=== PATIENT | female | born 1990 | race Caucasian/White ===

== ENCOUNTER 2018-04-14 09:11 | Observation (INO) | payer OTHER ==
--- NOTE | 2018-04-14 10:04 | ED Physician Documentation ---
PD HPI NVD - Stated complaint Stated Complaint: SEIZURES/VOMITING - Chief complaint Chief Complaint: Abd Pain - History obtained from History obtained from: Patient - History of Present Illness Timing - onset: How many days ago (2) Timing - duration: Days (2) Timing - details: Abrupt onset, Still present Associated symptoms: Abdominal pain, Dizzy (lightheaded), Loss of appetite. No: Hematemesis, Melena, Near syncope / syncope, Weight loss Improved by: Other (ice chips). No: Vomiting Worsened by: Eating Similar symptoms before: Diagnosis (She and the friend with her states she has had several episodes similar to this. She had been diagnosed with gastritis in the past and she said she was hospitalized for a few days last fall. She states she has nausea often and relates this to her anxiety. She does not typically have vomiting. She denies any purposeful vomiting. She has had not had any chronic diarrhea.) Recently seen: Not recently seen (She states she was last seen in February for nausea and vomiting add a different facility. She is recently moved here and had had prescriptions for a month or so had then run out of her clonazepam and alprazolam. She is almost out of her lamotrigine and. She has not obtained a local provider as yet.) Review of Systems Constitutional: reports: Myalgias. denies: Fever, Chills Nose: denies: Rhinorrhea / runny nose, Congestion Throat: denies: Sore throat Respiratory: denies: Cough GI: reports: Abdominal Pain (mid to upper abdomen), Nausea, Vomiting. denies: Constipation, Diarrhea, Hematemesis, Bloody / black stool : denies: Dysuria, Frequency Neurologic: reports: Generalized weakness. denies: Near syncope, Seizure (had some shakiness, but not seizure per se.) PD PAST MEDICAL HISTORY - Past Medical History Neuro: Seizure disorder (Uses lamotrigine and states she is almost out of medication. Her last dose on the current refill is today and she does not have another refill available.) GI: Other (episodes of nausea and vomiting every few months) Psych: Depression, Anxiety - Present Medications Home Medications: Ambulatory Orders Medication Instructions Recorded Confirmed ALPRAZolam [Alprazolam] 1 mg PO TID PRN 04/14/18 04/14/18 Amitriptyline [Elavil] 25 mg PO QPM 04/14/18 04/14/18 Venlafaxine HCl 37.5 mg PO 0800,1400 04/14/18 04/14/18 Venlafaxine [Effexor] 75 mg PO QPM 04/14/18 04/14/18 clonazePAM [KlonoPIN] 0.5 mg PO BID PRN 04/14/18 04/14/18 lamoTRIgine [LaMICtal] 100 mg PO BID 04/14/18 04/14/18 - Allergies Allergies/Adverse Reactions: Allergies Allergy/AdvReac Type Severity Reaction Status Date / Time No Known Drug Allergies Allergy Verified 04/14/18 09:30 - Living Situation Living Situation: reports: With spouse/s.o. Living Arrangement: reports: At home - Social History Does the pt smoke?: No Does the pt have substance abuse?: Yes Substance Use and Type: Marijuana PD ED PE NORMAL - Vitals Vital signs reviewed: Yes - General General: Alert and oriented X 3, Well developed/nourished, Other (appears pale, sweaty, in pain, and nauseated. ) - HEENT HEENT: Pharynx benign. No: Moist mucous membranes - Neck Neck: Supple, no meningeal sign, No adenopathy - Cardiac Cardiac: RRR, No murmur - Respiratory Respiratory: Clear bilaterally - Abdomen Abdomen: Soft, Non distended, No organomegaly, Other (bowel sounds increased. She is tender mid abdomen and epigastric area. No percussion tenderness. ) - Female Female : Deferred - Rectal Rectal: Deferred - Back Back: No CVA TTP - Derm Derm: No: Normal color (pale) - Neuro Neuro: Alert and oriented X 3, No motor deficit, Normal speech Results - Vitals Vitals: Vital Signs - 24 hr 04/14/18 04/14/18 04/14/18 09:27 09:51 11:01 Temperature 35 C L Heart Rate 101 H 90 96 Respiratory 24 16 21 Rate Blood Pressure 121/83 H 130/90 H 103/55 L O2 Saturation 100 98 92 04/14/18 12:21 Temperature Heart Rate 96 Respiratory 18 Rate Blood Pressure 130/85 H O2 Saturation 97 Oxygen O2 Source Room air - Labs Labs: Laboratory Tests 04/14/18 04/14/18 04/14/18 09:40 09:40 09:40 WBC RBC Hgb Hct MCV MCH MCHC RDW Plt Count MPV Neut # (Auto) Lymph # (Auto) [place] # (Auto) Eos # (Auto) Baso # (Auto) Absolute Nucleated RBC Nucleated RBC % Sodium 137 Potassium 3.0 L Chloride 101 Carbon Dioxide 17 L Anion Gap 19.0 H BUN 7 Creatinine 0.8 Estimated GFR (MDRD) 87 L Glucose 165 H POC Whole Bld Glucose Calcium 10.1 Magnesium 2.0 2.2 Total Bilirubin 1.3 H AST 33 ALT 15 Alkaline Phosphatase 118 Total Protein 8.6 H Albumin 5.2 Globulin 3.4 Albumin/Globulin Ratio 1.5 Lipase 30 TSH 04/14/18 04/14/18 04/14/18 09:40 09:44 10:12 WBC 15.3 H RBC 5.22 Hgb 14.8 Hct 43.9 MCV 84.1 MCH 28.4 MCHC 33.7 RDW 14.5 Plt Count 515 H MPV 7.8 L Neut # (Auto) 10.9 H Lymph # (Auto) 3.3 [place] # (Auto) 0.9 Eos # (Auto) 0.2 Baso # (Auto) 0.1 Absolute Nucleated RBC 0.00 Nucleated RBC % 0.0 Sodium Potassium Chloride Carbon Dioxide Anion Gap BUN Creatinine Estimated GFR (MDRD) Glucose POC Whole Bld Glucose 158 H Calcium Magnesium Total Bilirubin AST ALT Alkaline Phosphatase Total Protein Albumin Globulin Albumin/Globulin Ratio Lipase TSH 2.51 PD MEDICAL DECISION MAKING - ED course Complexity details: re-evaluated patient (She is improved to not actively vomiting at this point. She is not diaphoretic anymore and is starting to have some improved color. However she still is nauseated and was just tolerating ice chips. As such I do not feel she will be improved enough for discharge and will ask the hospitalist to look at her.), considered differential (The patient ran out of her benzodiazepines mid February. I think it has been long enough this is unlikely to be withdrawal component. However she has had increased a nxiety because of the lack of medication and that certainly can contribute as a trigger to her nausea vomiting and possibly gastritis. Given the episodes similar to this in the past and with stated regular cannabis use, could also consider cannabis hyperemesis as opposed to gastritis or anxiety. Certainly can have a components of all of those.), d/w patient Departure - Departure Disposition: ED Place in Observation Clinical Impression: Nausea and vomiting Qualifiers: Vomiting type: unspecified Vomiting Intractability: intractable Qualified Code(s): R11.2 - Nausea with vomiting, unspecified Abdominal pain Qualifiers: Abdominal location: upper abdomen, unspecified Qualified Code(s): R10.10 - Upper abdominal pain, unspecified Condition: Stable Record reviewed to determine appropriate education?: Yes Discharge Date/Time: 04/14/18 13:44
[2018-04-14 10:15] LABS: ALBUMIN 5.2 g/dL (3.2-5.5); ALBUMIN/GLOBULIN RATIO 1.5 (1.0-2.2); BILIRUBIN,TOTAL 1.3 mg/dL (0.2-1.0); CALCIUM 10.1 mg/dL (8.5-10.3); CREATININE 0.8 mg/dL (0.4-1.0); TOTAL PROTEIN 8.6 g/dL (6.7-8.2)
[2018-04-14] MEDS ORDERED: LORazepam 2 MG/ML VIAL IVP STA ×2 (10:25→11:20)
[2018-04-14] MEDS ORDERED: HALOPERIDOL 5 MG/ML VIAL IVP ONE (10:25)
[2018-04-14] MEDS ORDERED: SODIUM CHLORIDE 0.9% 1,000 ML IV ONE ×2 (10:26)
[2018-04-14] MEDS ORDERED: FAMOTIDINE 20 MG/2 ML VIAL IVP STA (10:26)
[2018-04-14 10:41] LABS: BASOPHILS # (AUTO) 0.1 10^3/uL (0.0-0.1); BASOPHILS % (AUTO) 0.3 %; EOSINOPHILS # (AUTO) 0.2 10^3/uL (0.0-0.7); EOSINOPHILS % (AUTO) 1.5 %; HGB - HEMOGLOBIN 14.8 g/dL (12.0-16.0); LYMPHOCYTES # (AUTO) 3.3 10^3/uL (1.5-3.5); LYMPHOCYTES % (AUTO) 21.4 %; MEAN CORPUSCULAR HEMOGLOBIN 28.4 pg (27.0-31.0); MEAN CORPUSCULAR HGB CONC 33.7 g/dL (32.0-36.0); MEAN CORPUSCULAR VOLUME 84.1 fL (81.0-99.0); MEAN PLATELET VOLUME 7.8 fL (7.9-10.8); MONOCYTES # (AUTO) 0.9 10^3/uL (0.0-1.0); MONOCYTES % (AUTO) 5.9 %; NEUTROPHILS # (AUTO) 10.9 10^3/uL (1.5-6.6); NEUTROPHILS % (AUTO) 70.9 %; PLT - PLATELET COUNT 515 10^3/uL (130-450); RED BLOOD COUNT 5.22 10^6/uL (4.20-5.40); RED CELL DISTRIBUTION WIDTH 14.5 % (12.0-15.0); WHITE BLOOD COUNT 15.3 x10^3/uL (4.8-10.8)
[2018-04-14] MEDS ORDERED: KETOROLAC 15 MG/ML VIAL IVP STA (10:49)
[2018-04-14] MEDS ORDERED: HYDROmorphone 1 MG/ML CARPUJECT IVP STA (11:20)
[2018-04-14] MEDS ORDERED: ONDANSETRON 4 MG/2 ML VIAL IVP STA (12:01)
[2018-04-14] MEDS ORDERED: MORPHINE 2 MG/ML CARPUJECT IVP PRN (12:37)
--- NOTE | 2018-04-14 12:56 | HISTORY & PHYSICAL EXAMINATION ---
Chief Complaint - Chief Complaint Chief Complaint: severe nausea, emesis with associated abd pain Abdominal Pain HPI - Admitted From Admitted from: ED - History Obtained From Records Reviewed: RN notes reviewed History obtained from: Patient Exam limitations: Clinical condition - History of Present Illness Pain/Problem Location Description: Lower abdominal pain Severity at the worst: Moderate Pain Quality: Sharp, Aching, Cramping Context-Pain started w/: Movement, Palpation, Position Timing: Gradual onset Improved with: Rest Associated symptoms: Nausea, Vomiting HPI Comment/Other: This is a 27 y/o female with hx seizure d/o on lamictal who suffers from severe anxiety and was previously on clonazepam and xanax prn for which she has not had last use since 02/18 p/w recurrent intractable nausea with emesis with associated abdominal pain post-emesis w/o sick contacts fevers, dysuria, pelvic pain, prior STD's or evidence of . States she has been smoking marijuana since age 19 y/o and her father and siblings have the same issue with marijuana associated nausea with emesis. Patient states debilitating anxiety for which she is unable to be functional and directly links this to her being taking off of clonazepam/xanax since moving here locally fo which her prior PCP would rx her meds. Patient denies seizure like activity while she has been off of benzos. On Exam patient was tearful, anxious w/ no arrhythmias or seizures on exam or tele, VSS, and labs did show mild leukocytosis with WBC of 15.3, K 3.o with c02 17, renal function preserved, LFT's normal, lipase 30, UDS, TSH and mag ordered. 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 PMH/PSH - Past Medical History Neuro: positive: Seizure disorder Psych: positive: Anxiety, Panic attacks MRSA Hx?: No Social & Family Hx - Social History Does the pt smoke?: Yes Does the pt drink ETOH?: No Does the pt have substance abuse?: Yes Substance Use and Type: Marijuana - POLST Patient has POLST: No Meds/Allgy - Home Medications Home Medications: Ambulatory Orders Medication Instructions Recorded Confirmed ALPRAZolam [Alprazolam] 1 mg PO TID PRN 04/14/18 04/14/18 Amitriptyline [Elavil] 25 mg PO QPM 04/14/18 04/14/18 Venlafaxine HCl 37.5 mg PO 0800,1400 04/14/18 04/14/18 Venlafaxine [Effexor] 75 mg PO QPM 04/14/18 04/14/18 clonazePAM [KlonoPIN] 0.5 mg PO BID PRN 04/14/18 04/14/18 lamoTRIgine [LaMICtal] 100 mg PO BID 04/14/18 04/14/18 - Allergies Allergies/Adverse Reactions: Allergies Allergy/AdvReac Type Severity Reaction Status Date / Time No Known Drug Allergies Allergy Verified 04/14/18 09:30 Review of Systems - Constitutional Constitutional: reports: Poor appetite - Ears, Nose & Throat Ears, Nose & Throat: denies: Tinnitus, Vertigo - Cardiovascular Cariovascular: denies: Irregular heart rate, Palpitations, Chest pain, Edema, Syncope - Respiratory Respiratory: denies: Cough, Sputum production, Wheezing, Hemoptysis, Orthopnea - Gastrointestinal Gastrointestinal: reports: Abdominal pain, Nausea, Vomiting. denies: Diarrhea, Bloody stools, Coffee grounds emesis, Reflux/heartburn - Genitourinary Genitourinary: denies: Dysuria, Frequency, Urgency - Musculoskeletal Musculoskeletal: denies: Muscle pain, Muscle weakness - Integumentary Integumentary: denies: Rash, Pruritis, Lesions, Dryness - Neurological Neurological: reports: General weakness. denies: Dizziness, Memory problems, Seizures - Psychiatric Psychiatric: denies: Depression, Anxiety, Hallucinations - Endocrine Endocrine: denies: Polyuria, Polydypsia, Intolerance to cold - Hematologic/Lymphatic Hematologic/Lymphatic: denies: Anemia, Bruising, Lymphadenopathy - All Other Systems All Other Systems: reports: Reviewed and negative Prior Level of Functionality: Independent with her ADL's Exam - Vital Signs Reviewed Vital Signs: Yes Vital Signs: Vital Signs x48h Temp Pulse Resp BP Pulse Ox 04/14/18 12:21 96 18 130/85 H 97 04/14/18 11:01 96 21 103/55 L 92 04/14/18 09:51 90 16 130/90 H 98 04/14/18 09:27 35 C L 101 H 24 121/83 H 100 - Physical Exam General Appearance: positive: No acute distress, Alert, Anxious, Other (tearful) Eyes Bilateral: positive: Normal inspection, PERRL, EOMI, Conjunctivae nml ENT: positive: ENT inspection nml, Pharynx nml, Dry mucous membranes Neck: positive: Nml inspection, Thyroid nml, No JVD, Trachea midline. negative: Thyromegaly, Carotid bruit Respiratory: positive: Chest non-tender, No respiratory distress, Breath sounds nml Cardiovascular: positive: Regular rate & rhythm, No murmur, No gallop. negative: Irregularly irregular, JVD present, Gallop/S4 Peripheral Pulses: positive: 2+ Abdomen: positive: Non-tender, No organomegaly, Nml bowel sounds, No distention, Tenderness (to epigastric lower quads) Back: positive: Nml inspection. negative: CVA tenderness (R), CVA tenderness (L) Skin: positive: Color nml, Warm Extremities: positive: Non-tender, Full ROM, Nml appearance, No pedal edema. negative: Pedal edema Neurologic/Psychiatric: positive: Oriented x3, CN's nml (2-12) Results - Lab Results Lab results reviewed: Yes Fish Bones: 04/14/18 10:12 04/14/18 09:40 Other Lab Results: Lab Results x24hrs 04/14/18 04/14/18 04/14/18 Range/Units 10:12 09:44 09:40 WBC 15.3 H (4.8-10.8) x10^3/uL RBC 5.22 (4.20-5.40) 10^6/uL Hgb 14.8 (12.0-16.0) g/dL Hct 43.9 (37.0-47.0) % MCV 84.1 (81.0-99.0) fL MCH 28.4 (27.0-31.0) pg MCHC 33.7 (32.0-36.0) g/dL RDW 14.5 (12.0-15.0) % Plt Count 515 H (130-450) 10^3/uL MPV 7.8 L (7.9-10.8) fL Neut # (Auto) 10.9 H (1.5-6.6) 10^3/uL Lymph # (Auto) 3.3 (1.5-3.5) 10^3/uL [place] # (Auto) 0.9 (0.0-1.0) 10^3/uL Eos # (Auto) 0.2 (0.0-0.7) 10^3/uL Baso # (Auto) 0.1 (0.0-0.1) 10^3/uL Absolute Nucleated RBC 0.00 x10^3/uL Nucleated RBC % 0.0 /100WBC Sodium (135-145) mmol/L Potassium (3.5-5.0) mmol/L Chloride (101-111) mmol/L Carbon Dioxide (21-32) mmol/L Anion Gap (6-13) BUN (6-20) mg/dL Creatinine (0.4-1.0) mg/dL Estimated GFR (MDRD) (>89) Glucose (70-100) mg/dL POC Whole Bld Glucose 158 H (70 - 100) mg/dL Calcium (8.5-10.3) mg/dL Magnesium 2.0 (1.7-2.8) mg/dL Total Bilirubin (0.2-1.0) mg/dL AST (10-42) IU/L ALT (10-60) IU/L Alkaline Phosphatase (42-121) IU/L Total Protein (6.7-8.2) g/dL Albumin (3.2-5.5) g/dL Globulin (2.1-4.2) g/dL Albumin/Globulin Ratio (1.0-2.2) Lipase (22-51) U/L 04/14/18 Range/Units 09:40 WBC (4.8-10.8) x10^3/uL RBC (4.20-5.40) 10^6/uL Hgb (12.0-16.0) g/dL Hct (37.0-47.0) % MCV (81.0-99.0) fL MCH (27.0-31.0) pg MCHC (32.0-36.0) g/dL RDW (12.0-15.0) % Plt Count (130-450) 10^3/uL MPV (7.9-10.8) fL Neut # (Auto) (1.5-6.6) 10^3/uL Lymph # (Auto) (1.5-3.5) 10^3/uL [place] # (Auto) (0.0-1.0) 10^3/uL Eos # (Auto) (0.0-0.7) 10^3/uL Baso # (Auto) (0.0-0.1) 10^3/uL Absolute Nucleated RBC x10^3/uL Nucleated RBC % /100WBC Sodium 137 (135-145) mmol/L Potassium 3.0 L (3.5-5.0) mmol/L Chloride 101 (101-111) mmol/L Carbon Dioxide 17 L (21-32) mmol/L Anion Gap 19.0 H (6-13) BUN 7 (6-20) mg/dL Creatinine 0.8 (0.4-1.0) mg/dL Estimated GFR (MDRD) 87 L (>89) Glucose 165 H (70-100) mg/dL POC Whole Bld Glucose (70 - 100) mg/dL Calcium 10.1 (8.5-10.3) mg/dL Magnesium (1.7-2.8) mg/dL Total Bilirubin 1.3 H (0.2-1.0) mg/dL AST 33 (10-42) IU/L ALT 15 (10-60) IU/L Alkaline Phosphatase 118 (42-121) IU/L Total Protein 8.6 H (6.7-8.2) g/dL Albumin 5.2 (3.2-5.5) g/dL Globulin 3.4 (2.1-4.2) g/dL Albumin/Globulin Ratio 1.5 (1.0-2.2) Lipase 30 (22-51) U/L Sepsis Event Note (H) - Evaluation Current Stage of Sepsis: Ruled out Impression/Plan - Problem List Problem List: 1. Acute Cannabis Hyperemesis Syndrome 2. Abdominal pain sec #1 3. Severe Anxiety disorder 4. Hypokalemia 5. Dehydration with mild metabolic acidosis 6. Leukocyosis sec to inflammatory component of intractable N/V with abd pain Plan: Admit to med/surg, IVF's to correct lytes, pain control restart home meds with her lamictal as well as her effexor, would re-start her benzodiazepines as she has likely component of pain associated with her anxiety uncontrolled and has resorted to smoking marijuana more consistently as a result. Marinol to be given for nausea control, consider REGLAN 5-10 mg PO TID ac, protonix IV BID, full liquid, advanced as tolerated. DVT/GI ppx Code status: FULL
[2018-04-14] MEDS: D5NS W/20 MEQ KCL 1,000 ML IV SCH ×3 (13:39→22:46)
[2018-04-14] MEDS ORDERED: VENLAFAXINE 37.5 MG TABLET PO SCH ×2 (14:00→21:00)
[2018-04-14] MEDS: SODIUM CHLORIDE FLUSH 0.9% 10 ML SYRINGE IVP SCH (14:31)
[2018-04-14 14:47] LABS: MUDS CUTOFF CONCENTRATIONS CUTOFF CONC BELOW:
[2018-04-14 14:59] LABS: BILIRUBIN,URINE NEGATIVE (NEGATIVE); GLUCOSE, URINE (UA) NEGATIVE (NEGATIVE); KETONES,URINE (UA) 40 mg/dL (NEGATIVE); LEUKOCYTE ESTERASE, URINE NEGATIVE (NEGATIVE); NITRITE,URINE NEGATIVE (NEGATIVE); OCCULT BLOOD,URINE SMALL (NEGATIVE); PROTEIN,URINE NEGATIVE (NEGATIVE); UROBILINOGEN,URINE 0.2 (NORMAL) E.U./dL (NORMAL)
[2018-04-14 15:15] LABS: CLARITY,URINE HAZY (CLEAR); HCG UR QUAL NEGATIVE
[2018-04-14 15:18] LABS: AMPHETAMINE SCREEN,URINE NEGATIVE (NEGATIVE); BACTERIA,URINE Moderate /HPF (None Seen); BENZODIAZEPINES SCREEN, URINE POSITIVE (NEGATIVE); COCAINE SCREEN URINE NEGATIVE (NEGATIVE); METHADONE SCREEN, URINE NEGATIVE (NEGATIVE); METHAMPHETAMINES SCREEN, URINE NEGATIVE (NEGATIVE); OPIATE SCREEN, URINE NEGATIVE (NEGATIVE); OXYCODONE SCREEN, URINE NEGATIVE (NEGATIVE); PROPOXYPHENE SCREEN, URINE NEGATIVE (NEGATIVE); RBC,URINE None Seen /HPF (0-5); SQUAMOUS EPITHELIAL CELL,UR RARE Squamous (<= Few); TRICYCLIC ANTIDEPRESSANT,URINE NEGATIVE (NEGATIVE)
[2018-04-14] MEDS: SODIUM CHLORIDE FLUSH 0.9% 10 ML SYRINGE IVP PRN (15:52)
[2018-04-14] MEDS: PANTOPRAZOLE 40 MG VIAL IVP SCH (15:52)
[2018-04-14] MEDS ORDERED: VENLAFAXINE 37.5 MG TABLET PO ONE (16:00)
[2018-04-14] MEDS: DRONABINOL 2.5 MG CAPSULE PO SCH (16:35)
[2018-04-14] MEDS: ONDANSETRON 4 MG/2 ML VIAL IVP PRN (16:39)
[2018-04-14] MEDS: clonazePAM 0.5 MG TABLET PO SCH ×2 (17:47→21:30)
[2018-04-14] MEDS: PROCHLORPERAZINE 10 MG/2 ML VIAL IVP PRN (17:47)
[2018-04-14] MEDS: VENLAFAXINE 37.5 MG TABLET PO SCH (21:30)
[2018-04-14] MEDS: lamoTRIgine 100 MG TABLET PO SCH (21:31)
[2018-04-14] MEDS: AMITRIPTYLINE 25 MG TABLET PO SCH (21:31)
[2018-04-14] MEDS: ALPRAZolam 0.25 MG TABLET PO SCH (21:31)
[2018-04-15] MEDS: PROCHLORPERAZINE 10 MG/2 ML VIAL IVP PRN ×3 (00:16→17:59)
[2018-04-15] MEDS: SODIUM CHLORIDE FLUSH 0.9% 10 ML SYRINGE IVP SCH ×4 (00:19→16:42)
[2018-04-15] MEDS: DRONABINOL 2.5 MG CAPSULE PO SCH ×2 (06:01→16:42)
[2018-04-15] MEDS: ALPRAZolam 0.25 MG TABLET PO SCH ×3 (06:01→21:08)
[2018-04-15] MEDS: SODIUM CHLORIDE FLUSH 0.9% 10 ML SYRINGE IVP PRN ×2 (06:02→18:03)
[2018-04-15] MEDS: PANTOPRAZOLE 40 MG VIAL IVP SCH ×2 (06:02→16:42)
[2018-04-15] MEDS: D5NS W/20 MEQ KCL 1,000 ML IV SCH ×3 (06:04→13:57)
[2018-04-15] MEDS: clonazePAM 0.5 MG TABLET PO SCH ×3 (06:08→21:08)
[2018-04-15 08:40] LABS: BASOPHILS % (AUTO) 0.3 %; EOSINOPHILS % (AUTO) 0.3 %; HGB - HEMOGLOBIN 10.7 g/dL (12.0-16.0); LYMPHOCYTES # (AUTO) 2.5 10^3/uL (1.5-3.5); LYMPHOCYTES % (AUTO) 24.3 %; MEAN CORPUSCULAR HEMOGLOBIN 28.8 pg (27.0-31.0); MEAN CORPUSCULAR HGB CONC 33.8 g/dL (32.0-36.0); MEAN CORPUSCULAR VOLUME 85.1 fL (81.0-99.0); MEAN PLATELET VOLUME 7.3 fL (7.9-10.8); MONOCYTES % (AUTO) 9.8 %; NEUTROPHILS # (AUTO) 6.8 10^3/uL (1.5-6.6); NEUTROPHILS % (AUTO) 65.3 %; PLT - PLATELET COUNT 286 10^3/uL (130-450); RED BLOOD COUNT 3.71 10^6/uL (4.20-5.40); RED CELL DISTRIBUTION WIDTH 14.1 % (12.0-15.0); WHITE BLOOD COUNT 10.3 x10^3/uL (4.8-10.8)
[2018-04-15] MEDS: lamoTRIgine 100 MG TABLET PO SCH ×2 (08:45→20:11)
[2018-04-15] MEDS: VENLAFAXINE 37.5 MG TABLET PO SCH ×2 (08:45→20:11)
[2018-04-15 08:49] LABS: CALCIUM 8.3 mg/dL (8.5-10.3); CREATININE 0.6 mg/dL (0.4-1.0)
[2018-04-15] MEDS ORDERED: POLYETHYLENE GLYCOL 3350 17 GM PACKET PO SCH (09:00)
[2018-04-15] MEDS ORDERED: LORazepam 2 MG/ML VIAL IVP PRN (10:17)
--- NOTE | 2018-04-15 15:56 | Discharge Plan ---
Discharge Plan Disposition: Home, Self Care Condition: Stable Prescriptions: ALPRAZolam [Alprazolam] 1 mg PO TID PRN #30 tablet PRN Reason: Anxiety Amitriptyline [Elavil] 25 mg PO QPM #30 tablet clonazePAM [KlonoPIN] 0.5 mg PO BID PRN #60 tablet PRN Reason: Anxiety lamoTRIgine [LaMICtal] 100 mg PO BID #60 tablet Venlafaxine [Effexor] 75 mg PO QPM #60 tablet Venlafaxine HCl 37.5 mg PO 0800,1400 #60 tablet Diet: Soft Activity Restrictions: Activity as Tolerated Shower Restrictions: No Driving Restrictions: No Weight Bearing: Full Weight Instruction Topics: Clonazepam tablets, Venlafaxine tablets, Amitriptyline tablets, Alprazolam tablets, Hyperemesis, Abuse Marijuana Additional Instructions or Follow Up instructions: You were in Observation status due to dehydration from excessive nausea and vomiting caused by marijuana use. Stop using marijuana. Advance your diet as tolerated. Stay hydrated. New prescriptions were ordered for you until you see your PCP. If you have new or worsening symptoms, come to the ER. No Smoking: If you smoke, Please STOP! Call for help. Follow-up with: Provider,Other [Primary Care Provider] -
--- NOTE | 2018-04-15 17:11 | PROVIDER PROGRESS NOTE ---
Assessment/Plan - Problem List (1) Cannabis hyperemesis syndrome concurrent with and due to cannabis abuse Assessment/Plan: She is slowly improving with no vomiting since breakfast and no nausea since last medicated with Compazine this afternoon. Continue iv fluids, but will decrease the rate. Advance diet as tolerated. The Compazine and pain meds made her sleepy. Anti-emetics as needed. She was put on Marinol, which will be stopped before [facility]. (2) Abdominal pain Qualifiers: Abdominal location: upper abdomen, unspecified Qualified Code(s): R10.10 - Upper abdominal pain, unspecified Assessment/Plan: Resolved. (3) Anxiety disorder Assessment/Plan: Patient is back on all her anxiolytics as before she ran out of them, and feels much better. - Current Meds Current Meds: Current Medications Generic Name Dose Route Start Last Admin Trade Name Freq PRN Reason Stop Dose Admin Alprazolam 1 mg 04/14/18 22:00 04/15/18 13:55 Xanax PO 1 mg TID BUD Administration Amitriptyline HCl 25 mg 04/14/18 21:00 04/14/18 21:31 Elavil PO 25 mg QPM BUD Administration Clonazepam 0.5 mg 04/14/18 18:00 04/15/18 14:02 Klonopin PO 0.5 mg TID BUD Administration Dronabinol 2.5 mg 04/14/18 16:00 04/15/18 16:42 Marinol PO 2.5 mg BIDAC BUD Administration Potassium Chloride/Dextrose/Sod Cl 1,000 mls @ 80 mls/hr 04/15/18 10:17 0 04/15/18 13:57 IV 80 mls/hr .[id number] BUD Administration Lamotrigine 100 mg 04/14/18 21:00 04/15/18 08:45 Lamictal PO 100 mg BID BUD Administration Lorazepam 0.5 mg 04/15/18 10:17 04/15/18 11:20 Ativan Inj (Vial) IVP 0.5 mg Q2H PRN Administration Anxiety Ondansetron HCl 4 mg 04/14/18 12:37 04/14/18 16:39 Zofran Inj IVP 4 mg Q6HR PRN Administration Nausea / Vomiting Pantoprazole Sodium 40 mg 04/14/18 16:00 04/15/18 16:42 Protonix IVP 40 mg BIDAC BUD Administration Prochlorperazine Edisylate 10 mg 04/14/18 12:37 04/15/18 09:14 Compazine Inj IVP 10 mg Q6HR PRN Administration Nausea / Vomiting Sodium Chloride 10 ml 04/14/18 12:37 04/15/18 06:02 Normal Saline Flush 0.9% IVP 10 ml PRN PRN Administration NEEDED PER PROVIDER ORDERS Sodium Chloride 10 ml 04/14/18 17:00 04/15/18 16:42 Normal Saline Flush 0.9% IVP 10 ml 0100,0900,1700 BUD Administration Venlafaxine HCl 75 mg 04/14/18 21:00 04/15/18 08:45 Effexor PO 75 mg BID BUD Administration - Lab Result Fish Bone Diagrams: 04/15/18 08:37 04/15/18 08:37 - Additional Planning My Orders: My Active Orders 04/15/18 10:17 D5ns W/20 Meq KCl 1,000 ml IV 80 mls/hr LORazepam INJ [Ativan Inj (Vial)] 0.5 mg IVP Q2H PRN Subjective - Subjective Patient Reports: Feeling Better, Other (vomited breakfast, then only had broth andd applesauce for lunch and got nauseated, needed Compazine.) Objective Vital Signs: Vital Signs - 24 hr 04/14/18 04/15/18 04/15/18 20:00 00:47 05:00 Temperature 37.0 C 36.5 C 37.0 C Heart Rate [ 98 95 87 Brachial] Respiratory 16 17 16 Rate Blood Pressure 147/95 H 110/58 L 112/51 L [Left Brachial artery] Blood Pressure [Right Brachial artery] O2 Saturation 100 95 95 04/15/18 04/15/18 04/15/18 08:11 11:52 16:50 Temperature 37.0 C 37.0 C 36.9 C Heart Rate [ 89 89 87 Brachial] Respiratory 18 18 16 Rate Blood Pressure 106/63 106/61 [Left Brachial artery] Blood Pressure 112/65 [Right Brachial artery] O2 Saturation 95 99 100 Oxygen O2 Source Room air I&O (Last 24 Hrs): Intake and Output Totals x24h 04/13/18 04/14/18 04/15/18 23:59 23:59 23:59 Intake Total 2700 3720 Output Total 551 400 Balance 2149 3320 General: Alert, Oriented x3 HEENT: Mucous membr. moist/pink, Other (appears fatigued) Neck: Supple Neuro: Non Focal Cardiovascular: Regular rate, No murmurs Respiratory: No respiratory distress, Breath sounds nml Abdomen: Normal bowel sounds, Soft, No tenderness, No hepatospenomegaly Extremities: No edema - Results Results: Laboratory Results WBC 10.3 x10^3/uL (4.8-10.8) 04/15/18 08:37 RBC 3.71 10^6/uL (4.20-5.40) L 04/15/18 08:37 Hgb 10.7 g/dL (12.0-16.0) L 04/15/18 08:37 Hct 31.5 % (37.0-47.0) L 04/15/18 08:37 MCV 85.1 fL (81.0-99.0) 04/15/18 08:37 MCH 28.8 pg (27.0-31.0) 04/15/18 08:37 MCHC 33.8 g/dL (32.0-36.0) 04/15/18 08:37 RDW 14.1 % (12.0-15.0) 04/15/18 08:37 Plt Count 286 10^3/uL (130-450) 04/15/18 08:37 MPV 7.3 fL (7.9-10.8) L 04/15/18 08:37 Neut # (Auto) 6.8 10^3/uL (1.5-6.6) H 04/15/18 08:37 Lymph # (Auto) 2.5 10^3/uL (1.5-3.5) 04/15/18 08:37 [place] # (Auto) 1.0 10^3/uL (0.0-1.0) 04/15/18 08:37 Eos # (Auto) 0.0 10^3/uL (0.0-0.7) 04/15/18 08:37 Baso # (Auto) 0.0 10^3/uL (0.0-0.1) 04/15/18 08:37 Absolute Nucleated RBC 0.01 x10^3/uL 04/15/18 08:37 Nucleated RBC % 0.0 /100WBC 04/15/18 08:37 Sodium 141 mmol/L (135-145) 04/15/18 08:37 Potassium 3.5 mmol/L (3.5-5.0) 04/15/18 08:37 Chloride 111 mmol/L (101-111) 04/15/18 08:37 Carbon Dioxide 22 mmol/L (21-32) 04/15/18 08:37 Anion Gap 8.0 (6-13) 04/15/18 08:37 BUN 5 mg/dL (6-20) L 04/15/18 08:37 Creatinine 0.6 mg/dL (0.4-1.0) 04/15/18 08:37 Estimated GFR (MDRD) 122 (>89) 04/15/18 08:37 Glucose 96 mg/dL (70-100) 04/15/18 08:37 POC Whole Bld Glucose 158 mg/dL (70 - 100) H 04/14/18 09:44 Calcium 8.3 mg/dL (8.5-10.3) L 04/15/18 08:37 Magnesium 2.2 mg/dL (1.7-2.8) 04/14/18 09:40 Total Bilirubin 1.3 mg/dL (0.2-1.0) H 04/14/18 09:40 AST 33 IU/L (10-42) 04/14/18 09:40 ALT 15 IU/L (10-60) 04/14/18 09:40 Alkaline Phosphatase 118 IU/L (42-121) 04/14/18 09:40 Total Protein 8.6 g/dL (6.7-8.2) H 04/14/18 09:40 Albumin 5.2 g/dL (3.2-5.5) 04/14/18 09:40 Globulin 3.4 g/dL (2.1-4.2) 04/14/18 09:40 Albumin/Globulin Ratio 1.5 (1.0-2.2) 04/14/18 09:40 Lipase 30 U/L (22-51) 04/14/18 09:40 TSH 2.51 uIU/mL (0.34-5.60) 04/14/18 09:40 Urine Color DARK YELLOW 04/14/18 14:15 Urine Clarity HAZY (CLEAR) 04/14/18 14:15 Urine pH 7.0 PH (5.0-7.5) 04/14/18 14:15 Ur Specific [place] 1.025 (1.002-1.030) 04/14/18 14:15 Urine Protein NEGATIVE mg/dL (NEGATIVE) 04/14/18 14:15 Urine Glucose (UA) NEGATIVE mg/dL (NEGATIVE) 04/14/18 14:15 Urine Ketones 40 mg/dL (NEGATIVE) H 04/14/18 14:15 Urine Occult Blood SMALL (NEGATIVE) H 04/14/18 14:15 Urine Nitrite NEGATIVE (NEGATIVE) 04/14/18 14:15 Urine Bilirubin NEGATIVE (NEGATIVE) 04/14/18 14:15 Urine Urobilinogen 0.2 (NORMAL) E.U./dL (NORMAL) 04/14/18 14:15 Ur Leukocyte Esterase NEGATIVE (NEGATIVE) 04/14/18 14:15 Urine RBC None Seen /HPF (0-5) 04/14/18 14:15 Urine WBC 0-3 /HPF (0-5) 04/14/18 14:15 Ur Squamous Epith Cells RARE Squamous (<= Few) 04/14/18 14:15 Urine Bacteria Moderate /HPF (None Seen) H 04/14/18 14:15 Ur Microscopic Review INDICATED 04/14/18 14:15 Urine Culture Comments INDICATED 04/14/18 14:15 Urine HCG, Qual NEGATIVE 04/14/18 14:15 Urine Opiates Screen NEGATIVE (NEGATIVE) 04/14/18 14:15 Ur Oxycodone Screen NEGATIVE (NEGATIVE) 04/14/18 14:15 Urine Methadone Screen NEGATIVE (NEGATIVE) 04/14/18 14:15 Ur Propoxyphene Screen NEGATIVE (NEGATIVE) 04/14/18 14:15 Ur Barbiturates Screen NEGATIVE (NEGATIVE) 04/14/18 14:15 Ur Tricyclics Screen NEGATIVE (NEGATIVE) 04/14/18 14:15 Ur Phencyclidine Scrn NEGATIVE (NEGATIVE) 04/14/18 14:15 Ur Amphetamine Screen NEGATIVE (NEGATIVE) 04/14/18 14:15 U Methamphetamines Scrn NEGATIVE (NEGATIVE) 04/14/18 14:15 U Benzodiazepines Scrn POSITIVE (NEGATIVE) H 04/14/18 14:15 Urine Cocaine Screen NEGATIVE (NEGATIVE) 04/14/18 14:15 U Cannabinoids Screen POSITIVE (NEGATIVE) H 04/14/18 14:15 Sepsis Event Note (H) - Evaluation Current Stage of Sepsis: Ruled out
[2018-04-15] MEDS: AMITRIPTYLINE 25 MG TABLET PO SCH (20:11)
[2018-04-16] MEDS: D5NS W/20 MEQ KCL 1,000 ML IV SCH (02:35)
[2018-04-16] MEDS: SODIUM CHLORIDE FLUSH 0.9% 10 ML SYRINGE IVP SCH ×2 (02:44→08:45)
[2018-04-16] MEDS: PROCHLORPERAZINE 10 MG/2 ML VIAL IVP PRN (02:47)
[2018-04-16] MEDS: ONDANSETRON 4 MG/2 ML VIAL IVP PRN (03:45)
[2018-04-16] MEDS: clonazePAM 0.5 MG TABLET PO SCH ×2 (06:36→13:20)
[2018-04-16] MEDS: DRONABINOL 2.5 MG CAPSULE PO SCH (06:36)
[2018-04-16] MEDS: ALPRAZolam 0.25 MG TABLET PO SCH ×2 (06:36→13:17)
[2018-04-16] MEDS: SODIUM CHLORIDE FLUSH 0.9% 10 ML SYRINGE IVP PRN ×2 (06:37→10:08)
[2018-04-16] MEDS: PANTOPRAZOLE 40 MG VIAL IVP SCH (06:37)
[2018-04-16] MEDS ORDERED: LORazepam 0.5 MG TABLET PO PRN (07:57)
[2018-04-16] MEDS ORDERED: ACETAMINOPHEN 325 MG TABLET PO PRN (07:57)
[2018-04-16] MEDS: lamoTRIgine 100 MG TABLET PO SCH (10:05)
[2018-04-16] MEDS: VENLAFAXINE 37.5 MG TABLET PO SCH (10:07)
[2018-04-16] MEDS ORDERED: ONDANSETRON ODT 4 MG TABLET TL PRN (10:58)
[2018-04-16 13:34] VITALS: BP 122/76
--- NOTE | 2018-04-19 11:27 | DISCHARGE SUMMARY ---
Physician: Misa Garcia MD DATE OF ADMISSION: 04/14/2018 DATE OF DISCHARGE: 04/16/2018 HISTORY OF PRESENT ILLNESS: This is a 27-year-old white female who moved to the [facility] about a month and a half ago. She has a history of seizure disorder, on Lamictal and has severe anxiety and was on clonazepam and Xanax. She started to see a PCP and was not ordered to continue with her clonazepam and Xanax. The patient also has a history of marijuana associated hyperemesis syndrome and reports the same diagnoses for her father and siblings. Patient started using more marijuana because of being taken off the clonazepam and Xanax, to deal with severe anxiety. With that, she developed nausea and vomiting. The vomiting was so severe she had abdominal pain. She presented with these complaints. She was placed in Observation status for rehydration and management of her nausea, vomiting, abdominal pain and anxiety. HOSPITAL COURSE AND DISCHARGE DIAGNOSES 1. Cannabis hyperemesis syndrome. The patient was on various antiemetics including Marinol for nausea, especially for prior marijuana user. Her diet was adjusted to clear liquids for bowel rest. The nausea continued for 48 hours and was exacerbated by attempting to eat creamy foods. She had a consultation from the tow truck dispatcher for assistance with choosing a proper diet. She was advanced to a soft diet eventually and was discharged. She was advised not to use marijuana to excess. 2. Abdominal pain. This was felt to be from her retching and vomiting and she did receive several doses of narcotics for pain control. Labs did not show any evidence of elevated lipase or bilirubin or LFT abnormalities. 3. Severe anxiety. The patient was treated with anxiolytics and discharged, restarted on her previous complete set of medications that were effective for anxiety control. 4. Seizure disorder. The patient was on her Lamictal while here. LABORATORY AND IMAGING: Reviewed and summarized above. ALLERGIES: NONE. MEDICATIONS AT THE TIME OF DISCHARGE 1. Alprazolam 1 mg p.o. t.i.d. p.r.n. anxiety. 2. Elavil 25 mg p.o. q.p.m. 3. Clonazepam 0.5 mg p.o. b.i.d. 4. Lamictal 100 mg p.o. b.i.d. 5. Effexor 75 mg q.p.m. and 37.5 mg p.o. b.i.d. CONDITION AT DISCHARGE: Stable. PHYSICAL EXAMINATION VITAL SIGNS: Blood pressure 122/76, pulse 78, afebrile, room air saturation 98%. HEENT: Showed moist oral mucosa. NECK: Without JVD. CHEST: Clear. HEART: Heart sounds normal. ABDOMEN: Soft with positive bowel sounds. No tenderness, guarding or rebound. No organomegaly. EXTREMITIES: Without edema. NEUROLOGIC: Grossly intact. FOLLOWUP: She was advised to see a PCP and stated there was an appointment pending with a new PCP in several weeks. CODE STATUS: FULL CODE. Time required to complete the entire discharge, chart review, prescription orders, discussion with the patient, and significant other: 35 minutes. TD: 04/19/2018 10:52 [email or web address]
== END 2018-04-16 14:20 | disposition home or self-care (01) ==
LOC: ED 09:11 → OBS 12:37
PROVIDERS: ADMIT Family Medicine; ATTEND Internal Medicine
DX: F12.188 Cannabis abuse with other cannabis-induced disorder (principal); R11.2 Nausea with vomiting, unspecified; R10.10 Upper abdominal pain, unspecified; R10.30 Lower abdominal pain, unspecified; F41.0 Panic disorder [episodic paroxysmal anxiety]; E87.6 Hypokalemia; E87.2 Acidosis; E86.0 Dehydration; G40.909 Epilepsy, unspecified, not intractable, without status epilepticus; F32.9 Major depressive disorder, single episode, unspecified; Z79.899 Other long term (current) drug therapy; Z87.19 Personal history of other diseases of the digestive system
CPT/HCPCS: 36415; 80048; 80053; 80306; 81001; 81025; 83690; 83735; 84443; 85025; 87077; 87086; 87181; 96361; 96365; 96366; 96375; 96376; 99284; A9270; G0378; J2060; Q0162; Q0167; 81003; 96374

== ENCOUNTER 2018-07-09 04:32 | Emergency (ER) | payer OTHER ==
--- NOTE | 2018-07-09 05:11 | ED Physician Documentation ---
PD HPI NVD - Stated complaint Stated Complaint: ANXIETY/BLURRED VISION/VOMITING - Chief complaint Chief Complaint: MHE - History obtained from History obtained from: Patient - History of Present Illness Timing - onset: How many days ago (2) Timing - duration: Days Timing - details: Waxing and waning Pain level now: 5 Associated symptoms: Abdominal pain, Dizzy Improved by: Other (nothing) Worsened by: Other (no apparent exacerbating factors) Similar symptoms before: Diagnosis (canabis hyperemesis) Recently seen: Emergency Dept (evaluated in ED April for same, admitted) - Additonal information Additional information: Patient complains of 1 to 2 days of nausea and vomiting, abdominal pain. She says she also has paralyzing anxiety. Patient says that she has a prescription for Zofran waiting for me at the pharmacy, but she says she has been too sick to pick it up. Patient moved to [facility] a few months ago, and has been admitted to this hospital in April for same symptoms. Patient indicates to me that she has had the symptoms before, and has been told it was related to cannabis hyperemesis syndrome. Patient says her last cannabis use was approximately two weeks ago. On my entrance into the room, she is holding emesis bag that is nearly half-full with what appears to be mostly water. Review of Systems Constitutional: reports: Reviewed and negative Cardiac: reports: Reviewed and negative Respiratory: reports: Reviewed and negative GI: reports: Abdominal Pain, Nausea, Vomiting. denies: Diarrhea : denies: Now EGA Neurologic: reports: Reviewed and negative PD PAST MEDICAL HISTORY - Past Medical History Past Medical History: Yes Cardiovascular: None Respiratory: None Neuro: Seizure disorder Endocrine/Autoimmune: None GI: Other : None, Kidney stones HEENT: None Psych: Depression, Anxiety Musculoskeletal: None Derm: Other - Past Surgical History Past Surgical History: Yes - Present Medications Home Medications: Ambulatory Orders Medication Instructions Recorded Confirmed ALPRAZolam [Alprazolam] 1 mg PO TID PRN #30 tablet 04/15/18 Amitriptyline [Elavil] 25 mg PO QPM #30 tablet 04/15/18 Venlafaxine HCl 37.5 mg PO 0800,1400 #60 tablet 04/15/18 Venlafaxine [Effexor] 75 mg PO QPM #60 tablet 04/15/18 clonazePAM [KlonoPIN] 0.5 mg PO BID PRN #60 tablet 04/15/18 lamoTRIgine [LaMICtal] 100 mg PO BID #60 tablet 04/15/18 ALPRAZolam [Alprazolam] 0.5 mg PO TID PRN #10 tablet 07/09/18 Promethazine [Phenergan] 25 mg PO Q6H PRN #10 tab 07/09/18 - Allergies Allergies/Adverse Reactions: Allergies Allergy/AdvReac Type Severity Reaction Status Date / Time No Known Drug Allergies Allergy Verified 07/10/18 11:51 - Social History Does the pt smoke?: No Smoking Status: Never smoker Does the pt drink ETOH?: No Does the pt have substance abuse?: Yes - POLST Patient has POLST: No PD ED PE NORMAL - Vitals Vital signs reviewed: Yes - General General: Alert and oriented X 3, Well developed/nourished, Other (diaphoretic, shaking, anxious, tearful, dry-heaving very loudly) - HEENT HEENT: PERRL, EOMI, Other (pasty mucous membranes) - Neck Neck: Supple, no meningeal sign - Cardiac Cardiac: No murmur - Respiratory Respiratory: No respiratory distress, Clear bilaterally - Abdomen Abdomen: Soft, Non distended, Other (periumbilical tenderness with partial distractable component) - Back Back: No CVA TTP - Derm Derm: Normal color, Warm and dry, No rash - Extremities Extremities: No edema - Neuro Neuro: Alert and oriented X 3 PD ED PE EXPANDED - Cardiac Cardiac: Tachy, Regular Rhythm Results - Vitals Vitals: Oxygen O2 Source Room air - Labs Labs: Laboratory Tests 07/09/18 07/09/18 05:00 05:00 WBC 24.1 H RBC 5.41 H Hgb 15.2 Hct 47.9 H MCV 88.5 MCH 28.1 MCHC 31.8 L RDW 14.6 Plt Count 494 H MPV 7.5 L Neut # (Auto) 21.7 H Lymph # (Auto) 0.8 L [place] # (Auto) 1.5 H Eos # (Auto) 0.0 Baso # (Auto) 0.1 Absolute Nucleated RBC 0.01 Nucleated RBC % 0.0 Manual Slide Review Indicated Platelet Estimate INCREASED (>450,000) RBC Morph Micro Appear NORMAL APPEARANCE Sodium 135 Potassium 3.0 L Chloride 98 L Carbon Dioxide 16 L Anion Gap 21.0 H BUN 9 Creatinine 0.8 Estimated GFR (MDRD) 87 L Glucose 225 H Calcium 10.1 Total Bilirubin 2.2 H AST 41 ALT 21 Alkaline Phosphatase 120 Total Protein 8.8 H Albumin 5.5 Globulin 3.3 Albumin/Globulin Ratio 1.7 Lipase 22 PD MEDICAL DECISION MAKING - ED course Complexity details: reviewed old records, reviewed results, re-evaluated patient, considered differential, d/w patient ED course: on reevaluation, after IV fluids, Phenergan, Ativan, patient appears drowsy, and is in no apparent distress. She is able to converse articulately, albeit with mild slurred speech. However, she says she feels no improvement in her symptoms. She requests admission to the hospital, says please dont send me home to spend the next two days in my bathroom.I explained that she has not had any significant emesis since receiving the medications, her CAT scan is reassuring, and, at this time, I do not feel hospital admission is indicated nor necessary. I reviewed with her some notes from her previous ED visit; they indicate she was admitted to another facility for a few days last fall: she tells me this is incorrect. They also indicate she was evaluated at another facility in February, which she also says is incorrect. I asked this so that previous records might be obtained. Patient says she hasnt been evaluated in an ED or hospital for these symptoms since approximately March of 2017 Departure - Departure Disposition: 01 Home, Self Care Clinical Impression: Cannabis hyperemesis syndrome concurrent with and due to cannabis abuse, Hyperglycemia, Hypokalemia Condition: Good Instructions: ED Potassium Deficiency, ED Nausea Vomiting, ED Hyperglycemia New Susp Diabetes Follow-Up: Dara Stark DNP [Primary Care Provider] - Prescriptions: ALPRAZolam [Alprazolam] 0.5 mg PO TID PRN #10 tablet PRN Reason: Anxiety Promethazine [Phenergan] 25 mg PO Q6H PRN #10 tab PRN Reason: Nausea / Vomiting Discharge Date/Time: 07/09/18 09:02
[2018-07-09] MEDS ORDERED: PROMETHAZINE INJ 25 MG in SODIUM CHLORIDE 0.9% 50 ML IV STA (05:27)
[2018-07-09] MEDS ORDERED: SODIUM CHLORIDE 0.9% 1,000 ML IV STA (05:27)
[2018-07-09] MEDS ORDERED: LORazepam 2 MG/ML VIAL IVP STA (05:28)
[2018-07-09 05:36] LABS: BASOPHILS # (AUTO) 0.1 10^3/uL (0.0-0.1); BASOPHILS % (AUTO) 0.3 %; HGB - HEMOGLOBIN 15.2 g/dL (12.0-16.0); LYMPHOCYTES # (AUTO) 0.8 10^3/uL (1.5-3.5); LYMPHOCYTES % (AUTO) 3.3 %; MEAN CORPUSCULAR HEMOGLOBIN 28.1 pg (27.0-31.0); MEAN CORPUSCULAR HGB CONC 31.8 g/dL (32.0-36.0); MEAN CORPUSCULAR VOLUME 88.5 fL (81.0-99.0); MEAN PLATELET VOLUME 7.5 fL (7.9-10.8); MONOCYTES # (AUTO) 1.5 10^3/uL (0.0-1.0); MONOCYTES % (AUTO) 6.2 %; NEUTROPHILS # (AUTO) 21.7 10^3/uL (1.5-6.6); NEUTROPHILS % (AUTO) 90.2 %; PLT - PLATELET COUNT 494 10^3/uL (130-450); RED BLOOD COUNT 5.41 10^6/uL (4.20-5.40); RED CELL DISTRIBUTION WIDTH 14.6 % (12.0-15.0); WHITE BLOOD COUNT 24.1 x10^3/uL (4.8-10.8)
[2018-07-09 05:42] LABS: ALBUMIN 5.5 g/dL (3.2-5.5); ALBUMIN/GLOBULIN RATIO 1.7 (1.0-2.2); BILIRUBIN,TOTAL 2.2 mg/dL (0.2-1.0); CALCIUM 10.1 mg/dL (8.5-10.3); CREATININE 0.8 mg/dL (0.4-1.0); TOTAL PROTEIN 8.8 g/dL (6.7-8.2)
[2018-07-09 06:34] LABS: PLATELET ESTIMATE, MANUAL INCREASED (>450,000) (NORMAL); RBC MORPHOLOGY (MULTIPLE) NORMAL APPEARANCE (NORMAL)
[2018-07-09] MEDS ORDERED: IOVERSOL 320 100 ML VIAL IVP ONE ×2 (06:40→06:55)
--- NOTE | 2018-07-09 07:17 | CT Report ---
Reason: abd. pain, leukocytosis Procedure Date: 07/09/2018 Accession Number: [id number] / [id number] Procedure: CT - Abdomen/Pelvis W CPT Code: FULL RESULT: EXAM: CT ABDOMEN AND PELVIS EXAM DATE: 07/09/2018 07:00 AM. CLINICAL HISTORY: Abd. pain, leukocytosis. COMPARISONS: None. TECHNIQUE: Routine helical CT imaging was performed through the abdomen and pelvis. IV contrast: [id number] 100ML. Enteric contrast: No. Reconstructions: Coronal and sagittal. In accordance with CT protocol optimization, one or more of the following dose reduction techniques were utilized for this exam: automated exposure control, adjustment of mA and/or KV based on patient size, or use of iterative reconstructive technique. FINDINGS: Lung Bases: There is a nodule at the left lung base. It measures approximately 5 mm (image 11 of series 3). Solid organs: The liver is without evidence of an enhancing mass. Focal fatty infiltration is seen adjacent to the falciform ligament. The spleen is without evidence of an enhancing mass. The pancreas and adrenal glands are normal in appearance. The kidneys are without evidence of a mass or hydronephrosis. Peritoneal Cavity/Bowel: The appendix is normal in appearance. There are no dilated loops of bowel to suggest the presence of an obstruction. Pelvic Organs: No mass or cyst is seen within the pelvis. Vasculature: There is no abdominal aortic aneurysm. Bones: No significant abnormality. Other: None. IMPRESSION: Increased lung markings in the left lower lobe of the lung that most likely represent atelectasis or scarring. Based on the patient's age, no further workup is needed. RADIA
[2018-07-09] MEDS ORDERED: ONDANSETRON 4 MG/2 ML VIAL IVP STA (07:36)
[2018-07-09] MEDS ORDERED: POTASSIUM CHLORIDE 20 MEQ TABLET PO STA (08:05)
[2018-07-09 09:02] VITALS: BP 130/74
== END 2018-07-09 09:02 | disposition home or self-care (01) ==
LOC: ED 04:32
DX: T40.7X1A Poisoning by cannabis (derivatives), accidental (unintentional), initial encounter (principal); R11.2 Nausea with vomiting, unspecified; F12.188 Cannabis abuse with other cannabis-induced disorder; R73.9 Hyperglycemia, unspecified; E87.6 Hypokalemia; F41.9 Anxiety disorder, unspecified; G40.909 Epilepsy, unspecified, not intractable, without status epilepticus
CPT/HCPCS: 36415; 74177; 80053; 83690; 85025; 96361; 96365; 96375; 99283; A9270; J2060; J7040; Q9967

== ENCOUNTER 2018-07-10 11:37 | Emergency (ER) | payer OTHER ==
[2018-07-10 13:57] LABS: BASOPHILS # (AUTO) 0.1 10^3/uL (0.0-0.1); BASOPHILS % (AUTO) 0.4 %; HGB - HEMOGLOBIN 15.6 g/dL (12.0-16.0); LYMPHOCYTES # (AUTO) 1.9 10^3/uL (1.5-3.5); LYMPHOCYTES % (AUTO) 13.2 %; MEAN CORPUSCULAR HEMOGLOBIN 28.4 pg (27.0-31.0); MEAN PLATELET VOLUME 7.3 fL (7.9-10.8); MONOCYTES # (AUTO) 0.8 10^3/uL (0.0-1.0); MONOCYTES % (AUTO) 5.8 %; NEUTROPHILS # (AUTO) 11.4 10^3/uL (1.5-6.6); NEUTROPHILS % (AUTO) 80.6 %; PLT - PLATELET COUNT 468 10^3/uL (130-450); RED BLOOD COUNT 5.47 10^6/uL (4.20-5.40); RED CELL DISTRIBUTION WIDTH 14.7 % (12.0-15.0); WHITE BLOOD COUNT 14.1 x10^3/uL (4.8-10.8)
[2018-07-10 14:07] LABS: ALBUMIN 5.4 g/dL (3.2-5.5); ALBUMIN/GLOBULIN RATIO 1.7 (1.0-2.2); BILIRUBIN,TOTAL 1.7 mg/dL (0.2-1.0); CALCIUM 9.9 mg/dL (8.5-10.3); CREATININE 0.8 mg/dL (0.4-1.0); TOTAL PROTEIN 8.5 g/dL (6.7-8.2)
[2018-07-10] MEDS ORDERED: HALOPERIDOL 5 MG/ML VIAL IVP STA (14:38)
[2018-07-10] MEDS ORDERED: SODIUM CHLORIDE 0.9% 1,000 ML IV ONE (14:38)
[2018-07-10] MEDS ORDERED: diphenhydrAMINE INJ 50 MG/ML VIAL IVP STA (14:38)
[2018-07-10] MEDS ORDERED: LORazepam 2 MG/ML VIAL IVP STA (14:38)
--- NOTE | 2018-07-10 14:48 | ED Physician Documentation ---
PD HPI NVD - Stated complaint Stated Complaint: ABD PX - Chief complaint Chief Complaint: Abd Pain - History obtained from History obtained from: Patient, Friend - History of Present Illness Timing - onset: How many days ago (3) Timing - duration: Days (3) Timing - details: Gradual onset Pain level max: 5 Pain level now: 5 Associated symptoms: Abdominal pain, Other (vomiting). No: Fever Contributing factors: Other (smokes marijuana, states last used 18 days ago.). No: Sick contact, Bad food, Travel, Recent antibiotics, Alcohol use, Anticoagulated, Diabetes Improved by: Other (nothing) Worsened by: Eating Similar symptoms before: Diagnosis (cannabanoid induced hyperemesis.) Recently seen: Not recently seen Review of Systems Constitutional: denies: Fever, Chills Throat: denies: Sore throat Cardiac: denies: Chest pain / pressure Respiratory: denies: Cough : denies: Now EGA Skin: denies: Rash Musculoskeletal: denies: Neck pain, Back pain Neurologic: denies: Headache PD PAST MEDICAL HISTORY - Past Medical History Past Medical History: Yes Cardiovascular: None Respiratory: None Neuro: Seizure disorder Endocrine/Autoimmune: None GI: Other : None, Kidney stones HEENT: None Psych: Depression, Anxiety Musculoskeletal: None Derm: Other - Past Surgical History Past Surgical History: Yes - Present Medications Home Medications: Ambulatory Orders Medication Instructions Recorded Confirmed ALPRAZolam [Alprazolam] 1 mg PO TID PRN #30 tablet 04/15/18 Amitriptyline [Elavil] 25 mg PO QPM #30 tablet 04/15/18 Venlafaxine HCl 37.5 mg PO 0800,1400 #60 tablet 04/15/18 Venlafaxine [Effexor] 75 mg PO QPM #60 tablet 04/15/18 clonazePAM [KlonoPIN] 0.5 mg PO BID PRN #60 tablet 04/15/18 lamoTRIgine [LaMICtal] 100 mg PO BID #60 tablet 04/15/18 ALPRAZolam [Alprazolam] 0.5 mg PO TID PRN #10 tablet 07/09/18 Promethazine [Phenergan] 25 mg PO Q6H PRN #10 tab 07/09/18 Ondansetron Odt [Zofran] 4 mg TL Q6H PRN #10 tablet 07/10/18 Promethazine [Phenergan] 25 mg PO Q6H PRN #10 tab 07/10/18 - Allergies Allergies/Adverse Reactions: Allergies Allergy/AdvReac Type Severity Reaction Status Date / Time No Known Drug Allergies Allergy Verified 07/10/18 11:51 - Social History Does the pt smoke?: No Smoking Status: Never smoker Does the pt drink ETOH?: No Does the pt have substance abuse?: No Substance Use and Type: Marijuana - POLST Patient has POLST: No PD ED PE NORMAL - Vitals Vital signs reviewed: Yes - General General: Alert and oriented X 3, Other (appears uncomfortable.) - HEENT HEENT: PERRL - Neck Neck: Supple, no meningeal sign - Cardiac Cardiac: RRR, Strong equal pulses - Respiratory Respiratory: No respiratory distress, Clear bilaterally - Abdomen Abdomen: Soft, Non tender, Non distended - Derm Derm: Warm and dry - Extremities Extremities: No edema - Neuro Neuro: Alert and oriented X 3 - Psych Psych: Normal mood, Normal affect Results - Vitals Vitals: Vital Signs - 24 hr 07/10/18 07/10/18 07/10/18 11:49 14:35 16:19 Temperature 36.3 C L Heart Rate 71 99 79 Respiratory 18 24 14 Rate Blood Pressure 112/82 H 143/92 H 115/68 O2 Saturation 99 100 98 Oxygen O2 Source Room air - Labs Labs: Laboratory Tests 07/10/18 07/10/18 13:43 13:43 WBC 14.1 H RBC 5.47 H Hgb 15.6 Hct 47.1 H MCV 86.0 MCH 28.4 MCHC 33.0 RDW 14.7 Plt Count 468 H MPV 7.3 L Neut # (Auto) 11.4 H Lymph # (Auto) 1.9 [place] # (Auto) 0.8 Eos # (Auto) 0.0 Baso # (Auto) 0.1 Absolute Nucleated RBC 0.00 Nucleated RBC % 0.0 Sodium 136 Potassium 3.1 L Chloride 95 L Carbon Dioxide 25 Anion Gap 16.0 H BUN 8 Creatinine 0.8 Estimated GFR (MDRD) 87 L Glucose 91 Calcium 9.9 Total Bilirubin 1.7 H AST 30 ALT 20 Alkaline Phosphatase 100 Total Protein 8.5 H Albumin 5.4 Globulin 3.1 Albumin/Globulin Ratio 1.7 Lipase 37 PD MEDICAL DECISION MAKING - ED course Complexity details: reviewed old records, reviewed results, re-evaluated patient, considered differential, d/w patient ED course: 27-year-old female with likely cannabinoid induced hyperemesis. Given Benadryl and Haldol IV. Symptoms resolved. Tolerating p.o. without difficulty. would like to go home at this time. Will prescribe antiemetics for home. Patient counseled regarding signs and symptoms for which I believe and urgent re- evaluation would be necessary. Patient with good understanding of and agreement to plan and is comfortable going home at this time This document was made in part using voice recognition software. While efforts are made to proofread this document, sound alike and grammatical errors may occur. Departure - Departure Disposition: 01 Home, Self Care Clinical Impression: Cannabis hyperemesis syndrome concurrent with and due to cannabis abuse Nausea and vomiting Qualifiers: Vomiting type: unspecified Vomiting Intractability: non-intractable Qualified Code(s): R11.2 - Nausea with vomiting, unspecified Condition: Good Instructions: ED Nausea Vomiting Follow-Up: Marvin Burton PA-C [Primary Care Provider] - Within 1 week Prescriptions: Ondansetron Odt [Zofran] 4 mg TL Q6H PRN #10 tablet PRN Reason: Nausea / Vomiting Promethazine [Phenergan] 25 mg PO Q6H PRN #10 tab PRN Reason: Nausea / Vomiting Comments: Drink plenty of fluids and rest. Return if you worsen. Discharge Date/Time: 07/10/18 16:21
[2018-07-10 16:20] VITALS: BP 115/68
== END 2018-07-10 16:21 | disposition home or self-care (01) ==
LOC: ED 11:37
DX: T40.7X1A Poisoning by cannabis (derivatives), accidental (unintentional), initial encounter (principal); R11.2 Nausea with vomiting, unspecified; F12.188 Cannabis abuse with other cannabis-induced disorder; Z87.442 Personal history of urinary calculi; G40.909 Epilepsy, unspecified, not intractable, without status epilepticus
CPT/HCPCS: 36415; 80053; 83690; 85025; 96361; 96374; 96375; 99283; J1200; J2060

== ENCOUNTER 2018-07-19 13:43 | Outpatient (CLI) | payer OTHER | END 2018-07-19 13:44 | disposition critical access hospital (66) | LOC: EMS 13:43 | PROVIDERS: ATTEND Surgery | DX: R56.9 Unspecified convulsions (principal); R11.2 Nausea with vomiting, unspecified; R52 Pain, unspecified; R53.1 Weakness ==

== ENCOUNTER 2018-07-19 13:56 | Emergency (ER) | payer OTHER ==
[2018-07-19] MEDS ORDERED: HALOPERIDOL 5 MG/ML VIAL IVP STA (14:27)
[2018-07-19] MEDS ORDERED: LORazepam 2 MG/ML VIAL IVP STA (14:27)
[2018-07-19] MEDS ORDERED: SODIUM CHLORIDE 0.9% 1,000 ML IV ONE ×2 (14:27→18:41)
[2018-07-19] MEDS ORDERED: diphenhydrAMINE INJ 50 MG/ML VIAL IVP STA (14:27)
--- NOTE | 2018-07-19 14:41 | ED Physician Documentation ---
History of Present Illness - Stated complaint Stated Complaint: POSSIBLY SZ - Chief complaint Chief Complaint: General - History obtained from History obtained from: Patient, EMS - History of Present Illness Timing: Today Pain level max: 5 Pain level now: 5 - Additonal information Additional information: 27-year-old female started having vomiting today. Also having crampy abdominal pain. This is been ongoing issue for her. She was diagnosed with possible cannabinoid induced hyperemesis and has been refraining from marijuana use. She states that she had a seizure today as well. States her last seizure was over a year ago. Does not currently see a neurologist. She does state that she hit her head and has a moderate headache currently. She states that her seizures are "stress-induced". Review of Systems Constitutional: denies: Fever, Chills Ears: denies: Ear pain Nose: denies: Rhinorrhea / runny nose, Congestion GI: denies: Vomiting Skin: denies: Rash Musculoskeletal: denies: Neck pain, Back pain Neurologic: reports: Headache. denies: Focal weakness, Numbness PD PAST MEDICAL HISTORY - Past Medical History Cardiovascular: None Respiratory: None Neuro: Seizure disorder Endocrine/Autoimmune: None GI: Other : None, Kidney stones HEENT: None Psych: Depression, Anxiety Musculoskeletal: None Derm: Other - Past Surgical History Past Surgical History: Yes - Present Medications Home Medications: Ambulatory Orders Medication Instructions Recorded Confirmed ALPRAZolam [Alprazolam] 1 mg PO TID PRN #30 tablet 04/15/18 Venlafaxine HCl 37.5 mg PO 0800,1400 #60 tablet 04/15/18 Venlafaxine [Effexor] 75 mg PO QPM #60 tablet 04/15/18 clonazePAM [KlonoPIN] 0.5 mg PO BID PRN #60 tablet 04/15/18 lamoTRIgine [LaMICtal] 100 mg PO BID #60 tablet 04/15/18 ALPRAZolam [Alprazolam] 0.5 mg PO TID PRN #10 tablet 07/09/18 Promethazine [Phenergan] 25 mg PO Q6H PRN #10 tab 07/09/18 Ondansetron Odt [Zofran] 4 mg TL Q6H PRN #10 tablet 07/10/18 Promethazine [Phenergan] 25 mg PO Q6H PRN #10 tab 07/10/18 LORazepam [Ativan] 1 mg PO Q8HR PRN #7 tablet 07/19/18 Promethazine [Phenergan] 25 mg PO Q6H PRN #10 tab 07/19/18 - Allergies Allergies/Adverse Reactions: Allergies Allergy/AdvReac Type Severity Reaction Status Date / Time No Known Drug Allergies Allergy Verified 07/19/18 14:06 - Social History Does the pt smoke?: No Smoking Status: Never smoker Does the pt drink ETOH?: No ETOH Use: Beer Does the pt have substance abuse?: No - Immunizations Immunizations are current?: Yes - POLST Patient has POLST: No PD ED PE NORMAL - Vitals Vital signs reviewed: Yes - General General: Alert and oriented X 3, No acute distress, Well developed/nourished - HEENT HEENT: Atraumatic, PERRL, EOMI, Moist mucous membranes, Other (No intraoral injury) - Neck Neck: Supple, no meningeal sign, No bony TTP - Cardiac Cardiac: RRR, Strong equal pulses - Respiratory Respiratory: No respiratory distress, Clear bilaterally - Abdomen Abdomen: Soft, Non tender, Non distended - Derm Derm: Warm and dry, No rash - Extremities Extremities: No deformity, No tenderness to palpate, Normal ROM s pain - Neuro Neuro: Alert and oriented X 3, lotus notes developer 2-12 intact, No motor deficit, No sensory deficit, Normal speech Eye Opening: Spontaneous Motor: Obeys Commands Verbal: Oriented GCS Score: 15 - Psych Psych: Normal mood, Normal affect Results - Vitals Vitals: Vital Signs - 24 hr 07/19/18 07/19/18 07/19/18 13:59 15:31 17:00 Temperature 36.2 C L Heart Rate 90 68 87 Respiratory 22 14 16 Rate Blood Pressure 127/93 H 112/78 129/87 H O2 Saturation 100 99 97 07/19/18 07/19/18 07/19/18 19:00 19:56 20:08 Temperature 37.1 C Heart Rate 91 100 94 Respiratory 22 20 18 Rate Blood Pressure 117/91 H 136/102 H 126/75 O2 Saturation 96 98 98 Oxygen O2 Source Room air - Labs Labs: Laboratory Tests 07/19/18 07/19/18 15:30 15:30 WBC 18.8 H RBC 4.89 Hgb 14.0 Hct 42.5 MCV 86.9 MCH 28.6 MCHC 32.9 RDW 14.4 Plt Count 354 MPV 7.5 L Neut # (Auto) 16.5 H Lymph # (Auto) 0.9 L [place] # (Auto) 1.3 H Eos # (Auto) 0.0 Baso # (Auto) 0.1 Absolute Nucleated RBC 0.01 Nucleated RBC % 0.0 Sodium 139 Potassium 3.3 L Chloride 104 Carbon Dioxide 21 Anion Gap 14.0 H BUN 6 Creatinine 0.7 Estimated GFR (MDRD) 102 Glucose 125 H Calcium 9.0 - Rads (name of study) Head CT Radiology: Prelim report reviewed, EMP read contemporaneously, See rad report (No acute intracranial abnormality) PD MEDICAL DECISION MAKING - ED course Complexity details: reviewed results, re-evaluated patient, considered differential, d/w patient ED course: 27-year-old female with ongoing nausea and vomiting. Feels better after medication here. She also struck her head when she had a seizure-like event. No acute findings on head CT. We will follow-up with her doctor to discuss her medications for her seizures. No fevers. Well-appearing, nontoxic. Feels much better after IV fluids. Patient counseled regarding signs and symptoms for which I believe and urgent re-evaluation would be necessary. Patient with good understanding of and agreement to plan and is comfortable going home at this time This document was made in part using voice recognition software. While efforts are made to proofread this document, sound alike and grammatical errors may occur. Departure - Departure Disposition: 01 Home, Self Care Clinical Impression: Seizure Nausea and vomiting Qualifiers: Vomiting type: unspecified Vomiting Intractability: non-intractable Qualified Code(s): R11.2 - Nausea with vomiting, unspecified Abdominal pain Qualifiers: Abdominal location: generalized Qualified Code(s): R10.84 - Generalized abdominal pain Head injury Qualifiers: Encounter type: initial encounter Qualified Code(s): S09.90XA - Unspecified injury of head, initial encounter Condition: Good Instructions: ED Abdominal Pain Unkn Cause, ED Nausea Vomiting Follow-Up: your,doctor in 3 days [Other] Prescriptions: LORazepam [Ativan] 1 mg PO Q8HR PRN #7 tablet PRN Reason: Anxiety Promethazine [Phenergan] 25 mg PO Q6H PRN #10 tab PRN Reason: Nausea / Vomiting Comments: Go home and rest today. Return if you worsen. Follow-up with your doctor for further care. Follow-up with your doctor to determine if you should change any of your seizure medications. Discharge Date/Time: 07/19/18 20:28
[2018-07-19] MEDS ORDERED: KETOROLAC 30 MG/ML VIAL IVP STA (15:36)
[2018-07-19 15:40] LABS: BASOPHILS # (AUTO) 0.1 10^3/uL (0.0-0.1); BASOPHILS % (AUTO) 0.3 %; LYMPHOCYTES # (AUTO) 0.9 10^3/uL (1.5-3.5); LYMPHOCYTES % (AUTO) 4.9 %; MEAN CORPUSCULAR HEMOGLOBIN 28.6 pg (27.0-31.0); MEAN CORPUSCULAR HGB CONC 32.9 g/dL (32.0-36.0); MEAN CORPUSCULAR VOLUME 86.9 fL (81.0-99.0); MEAN PLATELET VOLUME 7.5 fL (7.9-10.8); MONOCYTES # (AUTO) 1.3 10^3/uL (0.0-1.0); MONOCYTES % (AUTO) 7.1 %; NEUTROPHILS # (AUTO) 16.5 10^3/uL (1.5-6.6); NEUTROPHILS % (AUTO) 87.7 %; PLT - PLATELET COUNT 354 10^3/uL (130-450); RED BLOOD COUNT 4.89 10^6/uL (4.20-5.40); RED CELL DISTRIBUTION WIDTH 14.4 % (12.0-15.0); WHITE BLOOD COUNT 18.8 x10^3/uL (4.8-10.8)
[2018-07-19 15:45] LABS: CREATININE 0.7 mg/dL (0.4-1.0)
[2018-07-19] MEDS ORDERED: PROMETHAZINE INJ 25 MG in SODIUM CHLORIDE 0.9% 50 ML IV STA (17:04)
--- NOTE | 2018-07-19 18:26 | CT Report ---
Reason: head injury, head aches, seizure Procedure Date: 07/19/2018 Accession Number: [id number] / [id number] Procedure: CT - HEAD WO CPT Code: FULL RESULT: EXAM: CT HEAD EXAM DATE: 07/19/2018 05:49 PM. CLINICAL HISTORY: Head injury, headaches, seizure. COMPARISON: None. TECHNIQUE: Multiaxial CT images were obtained from the foramen magnum to the vertex. Reformats: Sagittal and coronal. IV contrast: None. In accordance with CT protocol optimization, one or more of the following dose reduction techniques were utilized for this exam: automated exposure control, adjustment of mA and/or KV based on patient size, or use of iterative reconstructive technique. FINDINGS: Parenchyma: No intraparenchymal hemorrhage. No evidence of mass, midline shift, or CT findings of infarction. Mcgee-white differentiation is distinct. Extraaxial Spaces: Normal for age. No subdural or epidural collections identified. Ventricles: Normal in size and position. Sinuses and Orbits: Imaged paranasal sinuses, orbits, and mastoids show no significant abnormality. Bones: No evidence of fracture or calvarial defect. Other: None. IMPRESSION: No acute intracranial abnormality. RADIA
[2018-07-19 20:09] VITALS: BP 126/75
== END 2018-07-19 20:28 | disposition home or self-care (01) ==
LOC: EDUNIT# → ED 13:56
DX: G40.909 Epilepsy, unspecified, not intractable, without status epilepticus (principal); R11.2 Nausea with vomiting, unspecified; R10.84 Generalized abdominal pain; S09.90XA Unspecified injury of head, initial encounter; W22.09XA Striking against other stationary object, initial encounter; Y92.009 Unspecified place in unspecified non-institutional (private) residence as the place of occurrence of the external cause; F41.9 Anxiety disorder, unspecified
CPT/HCPCS: 36415; 70450; 80048; 85025; 96361; 96365; 96375; 99283; 99284; J1200; J2060; J7040